=== PATIENT | female | born 1945 | race Caucasian/White ===

== ENCOUNTER 2020-01-02 00:58 | Inpatient (IN) | payer MEDICARE ==
[~2020-01-02] VITALS: Ht 162.6 cm; Wt 70.3 kg
--- NOTE | 2020-01-02 01:12 | NUR ---
HEAD GROWER AT BEDSIDE
[2020-01-02 01:27] LABS: BASOPHILS # (AUTO) 0.1 /CMM (0.0-0.2); EOSINOPHILS % (AUTO) 1.4 % (0.0-6.0); HEMATOCRIT 41 % (33-45); HEMOGLOBIN 13.6 g/dL (11.5-14.8); MEAN CORPUSCULAR HGB CONC 33 g/dl (31.0-36.0); MEAN CORPUSCULAR VOLUME 94 fL (82-100); MONOCYTES # (AUTO) 0.4 /CMM (0.1-1.30); MONOCYTES % (AUTO) 5.8 % (2.0-12.0); NEUTROPHILS # (AUTO) 4.6 /CMM (1.8-8.9); NEUTROPHILS % (AUTO) 63.8 % (43.0-81.0); PLATELET COUNT (AUTO) 246 /CMM (150-450); WHITE BLOOD COUNT (AUTO) 7.2 K/uL (4.3-11.0)
[2020-01-02 01:37] LABS: CALCIUM, SERUM 9.8 mg/dL (8.5-10.1); CARBON DIOXIDE 27 mmol/L (21-32); CHLORIDE 101 mmol/L (98-107); CREATININE 1.2 mg/dL (0.6-1.3); GLUCOSE 103 mg/dL (74-106); POTASSIUM 3.8 mmol/L (3.5-5.1); SODIUM SERUM 138 mmol/L (136-145); UREA NITROGEN, BLOOD 16 mg/dL (7-18)
--- NOTE | 2020-01-02 01:40 | NUR ---
RADIOLOGY AT BEDSIDE FOR CXR
--- NOTE | 2020-01-02 02:29 | NUR ---
DR. LU SPEAKING WITH DR. MCCONNELL REGARDING ADMISSION
--- NOTE | 2020-01-02 02:31 | NUR ---
LAB CALLED REGARDING NEGATIVE COVID RESULT.
--- NOTE | 2020-01-02 02:32 | NUR ---
CALLED NURSING SUP FOR BED
--- NOTE | 2020-01-02 02:39 | NUR ---
BED ASSIGNMENT 104
--- NOTE | 2020-01-02 02:51 | NUR ---
REPORT GIVEN TO ANABELLE FLORES FOR JOSE
[2020-01-02] MEDS ORDERED: ZOLPIDEM TARTRATE 5 MG TABLET PO PRN (03:00)
[2020-01-02] MEDS ORDERED: ACETAMINOPHEN 325 MG TABLET PO PRN (03:00)
[2020-01-02] MEDS ORDERED: ONDANSETRON HCL/PF 4 MG/2 ML VIAL IVP PRN (03:00)
[2020-01-02] MEDS ORDERED: MAG HYDROX/AL HYDROX/SIMETH 30 ML UDC PO PRN (03:00)
[2020-01-02] MEDS ORDERED: HYDROCODONE/APAP 5/325MG TABLET PO PRN (03:00)
--- NOTE | 2020-01-02 03:01 | NUR ---
PT TRANSFERED PER [facility] [employer].
[2020-01-02] MEDS ORDERED: TIOT18CA3 IH (03:28)
[2020-01-02] MEDS ORDERED: GABA-536 PO (03:28)
[2020-01-02] MEDS ORDERED: DULO20CA PO (03:28)
[2020-01-02] MEDS ORDERED: ATOR40TA PO (03:28)
[2020-01-02] MEDS ORDERED: BACL10TA PO (03:28)
[2020-01-02] MEDS ORDERED: LOSA100T31 PO (03:28)
[2020-01-02] MEDS ORDERED: AMLO5TAB9 PO (03:28)
[2020-01-02] MEDS ORDERED: MELO-105 PO (03:28)
[2020-01-02] MEDS ORDERED: VILA40TA PO (03:28)
[2020-01-02] MEDS ORDERED: METO25TA6 PO (03:28)
[2020-01-02] MEDS ORDERED: LEVO175T7 PO (03:28)
[2020-01-02] MEDS ORDERED: FAMO20TA8 PO (03:28)
[2020-01-02 03:50] VITALS: BP 150/91
[2020-01-02 04:18] VITALS: BP 150/91
--- NOTE | 2020-01-02 06:36 | NUR ---
RN NOTES GO TO PT ROOM AND I SAW PT SITTING ON BED AND SHE REMOVED THE TELE BOX AND PULL OUT HER IV, I ASK HER WHY SHE DO THAT AND SHE SAID SHE NEEDS TO GO HOME, I TOLD HER THAT SHE CANNOT GO HOME YET BECAUSE SHE NEED TO BE SEEN BY THE DOCTOR FIRST, AND SHE SAID SHE WAS HERE SINCE 1 AM AND IS TIRED OF WAITING, I CALLED HIS SON AND THE SON TALK TO HER AND EXPLAINED THAT SHE NEEDS TO STAY HERE FOR A WHILE AND DO SOME TEST TO HER AND THE DOCTOR WILL SEE HER THIS MORNING, SHE AGREE TO HER SON TO STAY FOR NOW AND TO FINISH ALL THE TEST THAT HOSPITAL NEED TO DO TO HER, PT GO BACK TO HER BED WE PUT ON THE TELE BOX AND GIVE HER SOME JUICE AND CRACKERS FOR NOW BECAUSE SHES ASKING FOR IT, WILL CONT TO MONITOR
[2020-01-02 06:41] LABS: BASOPHILS # (AUTO) 0.1 /CMM (0.0-0.2); BASOPHILS % (AUTO) 0.9 % (0.0-2.0); EOSINOPHILS % (AUTO) 1.4 % (0.0-6.0); HEMATOCRIT 42 % (33-45); LYMPHOCYTES # (AUTO) 2.5 /CMM (0.8-4.8); LYMPHOCYTES % (AUTO) 33.6 % (20.0-44.0); MEAN CORPUSCULAR HGB CONC 33 g/dl (31.0-36.0); MEAN CORPUSCULAR VOLUME 95 fL (82-100); MONOCYTES # (AUTO) 0.4 /CMM (0.1-1.30); MONOCYTES % (AUTO) 5.3 % (2.0-12.0); NEUTROPHILS # (AUTO) 4.3 /CMM (1.8-8.9); NEUTROPHILS % (AUTO) 58.8 % (43.0-81.0); PLATELET COUNT (AUTO) 255 /CMM (150-450); RED BLOOD CELL COUNT(AUTO) 4.42 MIL/uL (4.0-5.2); WHITE BLOOD COUNT (AUTO) 7.4 K/uL (4.3-11.0)
--- NOTE | 2020-01-02 06:52 | NUR ---
RN NOTES CALLED THE RODGER AT [facility] IN WHICH THE PT IS A RESIDENT AND ASK THEM IF THEY GAVE HER ALREADY THE FLU VACCINE AND PNEUMONIA VACCINE,BUT THE RN IS STILL NOT THERE AND SHE WILL COME AT 1000 THEY ADVISE ME TO CALL BACK AT 1000 ONWARDS BECAUSE THEY DIDNT KNOW IF SHE ALREADY RECEIVED THE VACCINE WILL ENDORSE TO AM SHIFT NURSE
[2020-01-02] MEDS ORDERED: PANTOPRAZOLE 40 MG TABLET.DR PO SCH (07:30)
--- NOTE | 2020-01-02 07:33 | NUR ---
PT ON BED AWAKE NO SIGN AND SYMPTOMS OF RESPIRATORY DISTRESS, TELE MONITOR READS SINUS RHYTHM 90'S NO PAIN COMPLAINT, ALL NEEDS ATTENDED, BED ON LOWEST POSITION AND LOCKED SIDE RAILS UP X2 CALL LIGHT WITHIN REACH WILL ENDORSED TO AM SHIFT NURSE
[2020-01-02 07:49] LABS: ALANINE AMINOTRANSFERASE 34 U/L (12-78); ALBUMIN 3.7 g/dL (3.4-5.0); ALKALINE PHOSPHATASE 77 U/L (46-116); ASPARTATE AMINOTRANSFERASE 29 U/L (15-37); BILIRUBIN,TOTAL 0.6 mg/dL (0.2-1.0); CARBON DIOXIDE 22 mmol/L (21-32); CHLORIDE 101 mmol/L (98-107); GLUCOSE 86 mg/dL (74-106); MAGNESIUM 2.4 mg/dL (1.8-2.4); PHOSPHORUS 2.8 mg/dL (2.5-4.9); SODIUM SERUM 134 mmol/L (136-145); TOTAL PROTEIN, SERUM 7.2 g/dL (6.4-8.2); UREA NITROGEN, BLOOD 13 mg/dL (7-18)
[2020-01-02 07:52] LABS: CHOLESTEROL 188 mg/dL (<200); HDL CHOLESTEROL 79 mg/dL (40-60); LDL 90 mg/dL (0-99); THYROID STIMULATING HORMONE 2.471 uIU/mL (0.358-3.74); TRIGLYCERIDES 82 mg/dL (30-150)
[2020-01-02 08:00] VITALS: BP 153/93
--- NOTE | 2020-01-02 08:00 | NUR ---
BOXER OPERATOR NOTE PATIENT IN BED ,ALERT ORIENTED X3 , ON TELE MONITOR NST HR 86 , NO SOB NOTED AT THIS TIME , ON RA , BED IN LOWEST AND LOCKED POSITION ,PLANO DF CARE DISCUSSED WITH [place] ,.CALL LIGHT WITHIN REACH
[2020-01-02] MEDS: DOCUSATE SODIUM 100 MG CAPSULE PO SCH ×2 (08:22→16:17)
[2020-01-02] MEDS ORDERED: AMLODIPINE BESYLATE 5 MG TABLET PO SCH (09:00)
[2020-01-02] MEDS ORDERED: METOPROLOL TARTRATE 25 MG TABLET PO SCH (09:00)
[2020-01-02] MEDS ORDERED: FAMOTIDINE (20 MG) 20 MG TABLET PO SCH (09:00)
[2020-01-02] MEDS ORDERED: ATORVASTATIN 40 MG TABLET PO SCH (09:00)
[2020-01-02] MEDS: IPRATROPIUM NEB FS 0.5 MG/2.5 ML AMPUL.NEB NEB SCH ×2 (09:00→13:30)
[2020-01-02] MEDS ORDERED: LEVOTHYROXINE SODIUM 175 MCG TABLET PO SCH (09:00)
[2020-01-02] MEDS ORDERED: BACLOFEN (10 MG) 10 MG TABLET PO SCH (09:00)
[2020-01-02] MEDS ORDERED: ENOXAPARIN SODIUM 40 MG/0.4 ML DISP.SYRIN SQ SCH (09:00)
[2020-01-02] MEDS ORDERED: TIOTROPIUM BROMIDE 6 CAP/BOX CAP.W.DEV IH SCH (09:00)
[2020-01-02] MEDS ORDERED: MELOXICAM 7.5 MG TABLET PO SCH (09:00)
[2020-01-02] MEDS ORDERED: DULOXETINE HCL 20 MG CAPSULE.DR PO SCH (09:00)
--- NOTE | 2020-01-02 09:30 | NUR ---
MILK ROUTE SUPERVISOR NOTE CONSENT FOR CT ANGIO SIGNED BY PATIENT NEW HL ON RT AC INSERTED G 20, WITH GOOD BLOOD RETURN.
[2020-01-02] MEDS ORDERED: IV NS 0.9% 250 ML IV ONE (09:50)
[2020-01-02] MEDS ORDERED: IOHEXOL-350 100 ML VIAL IV ONE (09:50)
--- NOTE | 2020-01-02 09:58 | NUR ---
SOCIAL STUDIES TEACHER NOTES TAKEN TO CT ANGIOGRAM VIA WHEELCHAIR IN STABLE CONDITION.
[2020-01-02] MEDS ORDERED: NITROGLYCERIN 0.4 MG/TAB BOTTLE SL ONE (10:00)
[2020-01-02] MEDS ORDERED: NITROGLYCERIN 0.4 MG/TAB BOTTLE ONE (10:10)
[2020-01-02] MEDS ORDERED: METOPROLOL TARTRATE INJ 5 MG/5 ML AMPUL ONE ×2 (10:11→11:02)
[2020-01-02] MEDS: METOPROLOL TARTRATE INJ 5 MG/5 ML AMPUL IVP PRN ×7 (10:15→10:40)
--- NOTE | 2020-01-02 11:07 | NUR ---
POST CTA PROCEDURE WELL TOLERATED BY THE PT. NOT IN RESPIRATORY DISTRESS, V/S STABLE, KEPT RESTED AND COMFORTABLE. REPORT GIVEN TO ANABELLE KILLIAN FOR JOSE.
--- NOTE | 2020-01-02 11:31 | NUR ---
DOG BEAUTICIAN NOTE BACK FROM [facility]A ANGIO MORNING PO MEDS GIVEN NOW
--- NOTE | 2020-01-02 11:35 | NUR ---
WINDOWS ADMINISTRATOR NOTE HOLD METOPROLOL WAS GIVEN AT [facility] ANGIO
[2020-01-02 12:00] VITALS: BP 120/65
[2020-01-02 12:19] VITALS: BP 120/65
--- NOTE | 2020-01-02 14:45 | NUR ---
KNIFE SETTER NOTES PATIENT INSISTED TO GO HOME. PULLED OUT IV LINE AND MARBLE COPER. NOTIFIED DR. COLE , STATED THAT SEEN CTA OK TO DISCHARGE PER HIS PERFECTIVE. CALLED NATALI DNP STATED WILL D/C PATIENT.
--- NOTE | 2020-01-02 15:48 | NUR ---
telecommunications linesworker note called son christine notified that patient is discharging home
[2020-01-02 16:19] VITALS: BP 130/83
--- NOTE | 2020-01-02 16:50 | NUR ---
telephone operators supervisor note per cyanide case hardener day ambulance will be at 1700, will f\u
--- NOTE | 2020-01-02 17:36 | NUR ---
telecommunications consultant note ambulance arrived, report given, taken to facility [facility] confirmed with case assistant, left hospital with stable condition , tele is removed hl removed by patient family notified. Instructed patient to follow up with kitchen utility associate and primary care and to return if condition worsens. Instructed on home medications and possible side effects. All belongings taken and signed. Need reinforcement to explain about discharge. Left hospital in stable condition accompanied ambulance crew.
[2020-01-02] MEDS ORDERED: GABAPENTIN 400 MG CAPSULE PO SCH (22:00)
== END 2020-01-02 17:13 | DRG 302 ==
LOC: ER 01:02 → TELE1 02:44
PROVIDERS: ADMIT Nurse Practitioner Acute Care; ATTEND Nurse Practitioner Acute Care
DX: I25.10 Atherosclerotic heart disease of native coronary artery without angina pectoris (principal); N17.0 Acute kidney failure with tubular necrosis; E87.1 Hypo-osmolality and hyponatremia; D68.59 Other primary thrombophilia; I10 Essential (primary) hypertension; Z86.73 Personal history of transient ischemic attack (TIA), and cerebral infarction without residual deficits; E78.5 Hyperlipidemia, unspecified; Z88.2 Allergy status to sulfonamides; Z88.8 Allergy status to other drugs, medicaments and biological substances; Z79.899 Other long term (current) drug therapy; E86.0 Dehydration; J44.9 Chronic obstructive pulmonary disease, unspecified; M19.90 Unspecified osteoarthritis, unspecified site; E03.9 Hypothyroidism, unspecified; F32.9 Major depressive disorder, single episode, unspecified; Z74.09 Other reduced mobility; T44.5X5A Adverse effect of predominantly beta-adrenoreceptor agonists, initial encounter; T39.395A Adverse effect of other nonsteroidal anti-inflammatory drugs [NSAID], initial encounter; Y92.9 Unspecified place or not applicable
CPT/HCPCS: 36415; 71045-TC; 75574; 80048-TC; 80053-TC; 80061-TC; 83735-TC; 84100-TC; 84443-TC; 84484-TC; 85025-TC; 87081-TC; 93307-TC; C9803; G0378; J1650; J3490; J7050; Q9967

== ENCOUNTER 2024-03-28 13:45 | Emergency (ER) | payer MEDICARE, OTHER ==
[~2024-03-28] VITALS: Ht 154.9 cm; Wt 61.2 kg
[~2024-03-28 13:45] MED LIST: AMLO-212 PO; ATOR40TA PO; BACL10TA PO; DULO20CA PO; FAMO20TA8 PO; GABA-536 PO; LEVO175T7 PO; LOSA100T31 PO; MELO-105 PO; METO25TA6 PO; TIOT18CA3 IH; VILA40TA PO
[2024-03-28] MEDS: MORPHINE SULFATE INJ 2 MG/ML DISP.SYRIN IV ONE ×2 (15:00→18:45)
[2024-03-28] MEDS ORDERED: MORPHINE SULFATE INJ 4 MG/ML DISP.SYRIN ONE ×2 (15:02→18:45)
[2024-03-28 15:03] LABS: BASOPHILS # (AUTO) 0.1 K/uL (0.0-0.2); BASOPHILS % (AUTO) 0.7 % (0.0-2.0); EOSINOPHILS # (AUTO) 0.1 K/uL (0.0-0.7); EOSINOPHILS % (AUTO) 0.8 % (0.0-6.0); HEMATOCRIT 41 % (33-45); HEMOGLOBIN 13.8 g/dL (11.5-14.8); LYMPHOCYTES # (AUTO) 1.7 K/uL (0.8-4.8); LYMPHOCYTES % (AUTO) 22.9 % (20.0-44.0); MEAN CORPUSCULAR HEMOGLOBIN 33 PG (26.0-33.0); MEAN CORPUSCULAR HGB CONC 33 g/dl (31.0-36.0); MEAN CORPUSCULAR VOLUME 98 fL (82-100); MONOCYTES # (AUTO) 0.5 K/uL (0.1-1.30); MONOCYTES % (AUTO) 6.6 % (2.0-12.0); PLATELET COUNT (AUTO) 248 K/uL (150-450); RED BLOOD CELL COUNT(AUTO) 4.22 MIL/uL (4.0-5.2); RED CELL DISTRIBUTION WIDTH 13.2 % (11.5-15.0); WHITE BLOOD COUNT (AUTO) 7.3 K/uL (4.3-11.0)
[2024-03-28 15:17] LABS: CALCIUM, SERUM 9.5 mg/dL (8.5-10.1); CREATININE 0.8 mg/dL (0.6-1.3); POTASSIUM 4.2 mmol/L (3.5-5.1)
[2024-03-28 16:06] LABS: INR 0.95 (0.91-1.10); PARTIAL THROMBOPLASTIN TIME 24.2 SEC (24.3-34.3); PROTHROMBIN TIME 10.1 SECS (9.2-11.1)
[2024-03-28] MEDS: KETAMINE HCL(200MG/20ML) 10 MG/ML VIAL IV ONE (17:04)
[2024-03-28 18:00] VITALS: BP 138/85; TEMP 97.9; O2SAT 99
== END 2024-03-28 18:59 | disposition short-term general hospital (02) ==
LOC: ER 13:57
DX: S72.142A Displaced intertrochanteric fracture of left femur, initial encounter for closed fracture (principal); M25.552 Pain in left hip; M54.9 Dorsalgia, unspecified; R07.9 Chest pain, unspecified; E78.5 Hyperlipidemia, unspecified; G89.29 Other chronic pain; I10 Essential (primary) hypertension; Z86.73 Personal history of transient ischemic attack (TIA), and cerebral infarction without residual deficits; Z88.2 Allergy status to sulfonamides; W18.39XA Other fall on same level, initial encounter; Y93.01 Activity, walking, marching and hiking; Y92.89 Other specified places as the place of occurrence of the external cause; Y99.8 Other external cause status
CPT/HCPCS: 99285; 96374; 71045; 96375; 93005; 96376; 73503; 85025; 80048; 36415; 85730; 72170; J2270 ×2; 73502